=== PATIENT | female | born 1925 | race Two or more races ===

== ENCOUNTER 2016-11-25 08:34 | Day surgery (SDC) | payer MEDICARE, MEDICAID ==
--- NOTE | 2016-11-21 15:30 | Pre-Procedure Note/Attestation ---
Pre-Procedure Note/Attestation Complete Prior to Procedure Planned Procedure: left Procedure Narrative: 1. CATARACT EXTRACTION WITH PHACO AND PC IOL IMPLANTATION, LEFT EYE. 2.LIMBAL RELAXING INCISION, LEFT EYE. Indications for Procedure Pre-Operative Diagnosis: 1. CATARACT , LEFT EYE. 2. ASTIGMATISM, LEFT EYE. Attestation I attest that I discussed the nature of the procedure; its benefits; risks and complications; and alternatives (and the risks and benefits of such alternatives ), prior to the procedure, with the patient (or the patient's legal solar sales representative and assessor). I attest that, if there was a reasonable possibility of needing a blood transfusion, the patient (or the patient's legal solar sales representative and assessor) was given the [place] Department [employer] standardized written summary, pursuant to the Ye Schuyler Blood Safety Act ([place] Health and Safety Code # 1645, as amended). I attest that I re-evaluated the patient just prior to the surgery and that there has been no change in the patient's H&P, except as documented below: NARAYAN ARREGUIN Nov 21, 2016 15:30
[~2016-11-25] VITALS: Ht 162.6 cm; Wt 90.7 kg
[2016-11-25] VITALS (9 sets, daily range): BP systolic 140–160; BP diastolic 61–88
[~2016-11-25 08:34] MED LIST: acetaZOLAMIDE 125mg tab ORAL ONE
[2016-11-25] MEDS ORDERED: Phenylephrine 10% Opth Soln 5ml ONE (08:49)
[2016-11-25] MEDS ORDERED: Akten 3.5% 1ml Btl ONE (08:49)
[2016-11-25] MEDS ORDERED: Vigamox Opth Soln ONE (08:49)
[2016-11-25] MEDS ORDERED: Tropicamide 1% Opth Soln ONE (08:49)
[2016-11-25] MEDS ORDERED: LR 1000ml ONE (09:00)
[2016-11-25] MEDS ORDERED: Midazolam 2mg/2ml Inj ONE (09:00)
[2016-11-25] MEDS ORDERED: Sterile Water Irrig 1000ml IRRIG ONE (09:00)
[2016-11-25] MEDS ORDERED: NS Irrig 1000ml ONE (09:00)
[2016-11-25] MEDS ORDERED: fentaNYL 100 mcg/2 mL IV ONE (09:00)
[2016-11-25] MEDS ORDERED: Diclofenac Sod 0.1% Op Soln ONE (09:06)
[2016-11-25] MEDS: Akten 3.5% 1ml Btl LEFT EYE SCH ×3 (09:07→09:20)
[2016-11-25] MEDS: Tropicamide 1% Opth Soln LEFT EYE SCH ×3 (09:07→09:20)
[2016-11-25] MEDS: Vigamox Opth Soln LEFT EYE SCH ×3 (09:07→09:20)
[2016-11-25] MEDS: Phenylephrine 10% Opth Soln 5ml LEFT EYE SCH ×3 (09:07→09:20)
[2016-11-25] MEDS: Diclofenac Sod 0.1% Op Soln LEFT EYE SCH ×3 (09:08→09:20)
[2016-11-25] MEDS ORDERED: PRAVASTATIN SOD40 M1 ORAL (09:34)
[2016-11-25] MEDS ORDERED: NORVASC5 MG ORAL (09:34)
[2016-11-25] MEDS ORDERED: LR 1000ml 1,000 ML IVLG SCH (09:46)
--- NOTE | 2016-11-25 09:51 | Immediate Post-Op Evaluation ---
Immediate Post-Op Evalulation Immediate Post-Op Evalulation Procedure: Extraction of cataract with IOL left eye Date of Evaluation: Nov 25, 2016 Time of Evaluation: 10:20 IV Fluids: 350 Blood Pressure Systolic: 156 Blood Pressure Diastolic: 71 Pulse Rate: 72 Respiratory Rate: 15 O2 Sat by Pulse Oximetry: 93 Temperature (Fahrenheit): 97.4 Pain Score (1-10): 0 Nausea: No Vomiting: No Complications No complication Patient Status: awake, patent, none Hydration Status: adequate Drug: None TANA PEACOCK M.D. Nov 25, 2016 09:51
--- NOTE | 2016-11-25 09:51 | Anethesia Preoperative Eval ---
Anesthesia Pre-op PMH/ROS General Date of Evaluation: Nov 25, 2016 Time of Evaluation: 09:18 Anesthesiologist: Vipul ASA Score: ASA 3 Mallampati Score Class I : Soft palate, uvula, fauces, pillars visible Class II: Soft palate, uvula, fauces visible Class III: Soft palate, base of uvula visible Class IV: Only hard plate visible Mallampati Classification: Class II Surgeon: Martin Diagnosis: Cataract left eye Surgical Procedure: Extraction of cataract with IOL left eye Anesthesia History: none Family History: no anesthesia problems Allergies: Coded Allergies: No Known Allergies (Unverified , 11/21/16) Medications: see eMAR Past Medical History Cardiovascular: Reports: HTN, other - Hypercholesterolemia, Denies: CAD, ME, valve dz, arrhythmia Pulmonary: Denies: asthma, COPD, JAMIN, other Gastrointestinal/Genitourinary: Denies: GERD, CRI, ESRD, other Neurologic/Psychiatric: Denies: dementia, CVA, depression/anxiety, TIA, other Endocrine: Denies: DM, hypothyroidism, steroids, other HEENT: Denies: cataract (L), cataract (R), glaucoma, ABSENTEE-SHAWNEE (L), ABSENTEE-SHAWNEE (R), other Hematology/Immune: Denies: anemia, DVT, bleeding disorder, other Musculoskeletal/Integumentary: Reports: DJD, Denies: OA, RA, DDD, edema, other Other: obesity PMH Narrative: HTN, obesity, DJD, hypercholesterolemia PSxH Narrative: No prior surgery Anesthesia Pre-op Phys. Exam Physician Exam Last Vital Signs Date Time Temp Pulse Resp B/P (MAP) Pulse Ox O2 Delivery O2 Flow Rate FiO2 11/25/16 09:10 97.0 74 19 152/65 97 Room Air Constitutional: NAD Neurologic: CN 2-12 intact Cardiovascular: RRR, no M/R/G Respiratory: CTA Airway Exam Mallampati Score: Class I MO: full ROM: full Dentures: upper Anesthesia Pre-op A/P Labs WNL Risk Assessment & Plan Assessment: Class 3 obese, hypertensive female for cataract extraction Plan: MAC Status Change Before Surgery: No Pre-Antibiotics Drug: None TANA PEACOCK M.D. Nov 25, 2016 09:51
[2016-11-25] MEDS ORDERED: fentaNYL 100 mcg/2 mL IV PRN (10:00)
[2016-11-25] MEDS ORDERED: LR 1000ml 1,000 ML IV SCH (10:00)
--- NOTE | 2016-11-25 10:15 | Discharge Summary ---
Discharge Summary Discharge Summary Discharge Summary DATE OF ADMISSION: 11/25/2016 DATE OF DISCHARGE: 11/25/2016 REASON FOR HOSPITALIZATION: Cataract left eye SURGERY PERFORMED: Cataract extraction with phaco and PC IOL implantation, left eye CONDITION IN THE HOSPITAL:The patient tolerated the surgery without complications. DISCHARGE CONDITION: The patient was stable at discharge. DISCHARGE MEDICATIONS: 1. Vigamox eye drops one drop q.i.d, left eye 2. Prednisolone one drop q.i.d, left eye 3. Acular one drop q4h, left eye POSTOPERATIVE ORDERS: The patient has to rest at home. No bending, No lifting, No watching Television tonight. POSTOPERATIVE FOLLOW UP: The patient will be followed in my office tomorrow morning at 7 o'clock. NARAYAN ARREGUIN Nov 25, 2016 10:15
--- NOTE | 2016-11-25 10:18 | Brief Operative Note ---
Immediate Post Operative Note Operative Note Chief Complaint: Blurry vision difficulty driving and reading, left eye Pre-op Diagnosis: 1. CATARACT , LEFT EYE. 2. ASTIGMATISM, LEFT EYE. Procedure: Cataract extraction with phaco and PC IOL implantation, left eye Post-op Diagnosis: same as pre-op Surgeon: Narayan Salazar MD Front End Java Developer: None Additional Surgeons: None Anesthesiologist: DR. Garcia Anesthesia: MAC Specimen: none Complications: none Condition: stable Fluids: LR 500 ml Estimated Blood Loss: none Drains: none Packing: none Implant(s) used?: Yes - Monofocal PC IOL implanted in the left eye without complication NARAYAN SALAZAR Nov 25, 2016 10:18
--- NOTE | 2016-11-25 10:18 | 48 Hour Post Anesthesia Eval ---
Post Anesthesia Evaluation Procedure: Extraction of cataract with IOL left eye Date of Evaluation: Nov 25, 2016 Time of Evaluation: 10:45 Blood Pressure Systolic: 158 0: 68 Pulse Rate: 70 Respiratory Rate: 14 O2 Sat by Pulse Oximetry: 95 Airway: patent Nausea: No Vomiting: No Pain Intensity: 0 Hydration Status: adequate Cardiopulmonary Status: Stable Mental Status/LOC: patient returned to baseline Follow-up Care/Observations: As per surgery Post-Anesthesia Complications: No anesthesia complication Follow-up care needed: N/A TANA PEACOCK M.D. Nov 25, 2016 10:18
[2016-11-25] MEDS ORDERED: Lidocaine 1% MPF 10mg/ml 5ml ONE (12:29)
[2016-11-25] MEDS ORDERED: Dexamethasone 4mg/ml vial ONE (12:29)
[2016-11-25] MEDS ORDERED: BSS 500ml btl ONE (12:29)
[2016-11-25] MEDS ORDERED: BSS 15ml BTL ONE (12:30)
[2016-11-25] MEDS ORDERED: Sodium Hyaluronate 10 mg/ml 0.85ml ONE (12:30)
[2016-11-25] MEDS ORDERED: EPINEPHrine 1mg/1ml Amp ONE (12:30)
[2016-11-25] MEDS ORDERED: Povidone-Iodine 5% opth solution ONE (12:30)
--- NOTE | 2016-11-26 06:45 | Operative Note - Dictated ---
DATE OF OPERATION: 11/25/2016 FACILITY: [facility]. SURGEON: Theron Salazar M.D. MANUFACTURING ENGINEER MACHINING: None. ANESTHESIOLOGIST: Ye Matthew M.D. ANESTHESIA: Monitored anesthesia care (MAC). PREOPERATIVE DIAGNOSES: 1. Cataract, left eye. 2. Astigmatism, left eye. POSTOPERATIVE DIAGNOSES: 1. Cataract, left eye. 2. Astigmatism, left eye. SURGERY PERFORMED: 1. Cataract extraction with phacoemulsification and posterior chamber intraocular lens implantation in the left eye. 2. Limbal relaxing incision in the left eye. INDICATION FOR SURGERY: The patient is an 89-year-old lady with history of hypertension, hypercholesterolemia, hyperlipidemia, morbid obesity, arthritis, spondylosis, vitamin D deficiency, low back pain, osteopenia, and vertigo. The patient is taking medications are including pravastatin, dexamethasone, amlodipine, aspirin, and multivitamins. She is not allergic to any medications. She does not smoke. She has had hysterectomy in the past. She has had cataract surgery in the right eye. She is not happy with the results in other place. She is complaining of blurred vision in the left eye. On examination of the left eye, the cornea is clear. Anterior chamber is clean and quiet. Pupillary reflex is normal. There is no RAPD. There is 4+ nuclear sclerosis and 2+ cortical cataract. To improve her vision in the left eye, the cataract has to be removed and anterior chamber intraocular lens has to be implanted. INFORMED CONSENT: The nature of the surgery, risks, benefits, alternatives, and potential complications were all explained in detail to the patient. The potential complications including, but not limited to bleeding, infection, posterior capsular rupture, lens subluxation, flat anterior chamber, iris prolapse, uveitis, corneal edema, macular edema, endophthalmitis, retinal detachment, loss of vision, and even loss of the eye were all explained in detail to the patient. The patient voiced understanding and accepted to all the complications. The alternatives including accommodating lens, multifocal lens, toric lens, and conventional cataract surgery with limbal relaxing incision (LRI) for treatment of astigmatism were all explained in detail to the patient. The patient voiced understanding. The patient elected to have conventional cataract surgery with limbal relaxing for astigmatism. Then, she signed the consent form, which is in the chart. DESCRIPTION OF SURGERY AND FINDINGS: Following that, the patient was taken to the operation room in a stable condition. Lidocaine gel Akten 3.5% were applied to the conjunctiva of the left eye and and IV sedation was given by the anesthesiologist, Dr. Matthew. After adequate anesthesia and sedation had been achieved, the left eye was prepped and draped in a sterile fashion for intraocular surgery. Following that, the speculum was placed in the left eye. Before the patient was taken to the operation room, the cornea was marked at 180 and 90 meridian. In the operation room, using a corneal marker and marking pen, the steep meridian of the cornea was marked. Following that, using a luba knife, two parallel incision was placed on the steep meridian of the cornea to treat the patient's astigmatism. Following that, using a Super Sharp knife, a clear corneal side port was created. Following that, 1% lidocaine without preservative (MPF) was injected into the anterior chamber. Viscoelastic agent, Healon was injected into the anterior chamber. Following that, a clear corneal side temporal keratotomy was performed with a 2.8 mm keratome. Following that, viscoelastic agent was injected into the anterior chamber. Following that, vision blue was injected under the viscoelastic agent into anterior chamber to stain the anterior capsule of the lens. Following that, a clear fresh viscoelastic agent was injected into the anterior chamber again. Under the viscoelastic agent, an anterior capsulotomy was performed in the fashion of capsulorrhexis beautifully. Following that, all viscoelastic agent was removed from the anterior chamber. Following that, using a balanced salt solution, hydrodissection and hydrodelineation was performed and the nucleus was freed. Following that, the viscoelastic was removed from the anterior chamber again. Following that, viscoelastic agent was injected into the anterior chamber again to protect the endothelium of the cornea. Following that, using phacoemulsification machine in the fashion of horizontal chop, the nucleus was removed in toto. Following that, the cortical material was removed from the capsular bag and the capsular bag was polished. Following that, the capsular bag was filled with viscoelastic agent, Healon. Following that, a +20 diopter ZCB00 foldable PCIOL with serial number #[id number] was injected into the capsular bag. Using a Sinskey hook, the lens was manipulated within the proper position. Viscoelastic agent was removed from the anterior posterior part of the lens. Anterior chamber was freed with balanced salt solution. The wound was hydrated with balanced salt solution and the wound was checked for leakage. There was no leakage. Vigamox eye drops were applied to the conjunctiva of the left eye. The patient tolerated the surgery without complications. At the end of the surgery, the eye was patched with a clear sterile fenestrated shield. Following that, the patient was transferred to the recovery room. In the recovery room, 125 mg Diamox was given by mouth stat. Postoperative orders and directions were given to the patient. The patient will be discharged home upon stabilization. The patient will be followed in my office tomorrow morning at 7 o'clock. Theron Salazar M.D. DR: KAREN JOB#: [id number] CC:
== END 2016-11-25 11:45 | disposition home or self-care (01) ==
LOC: SUR 08:34 → EDBD 10:30 → SUR 11:45
DX: H25.12 Age-related nuclear cataract, left eye (principal); H52.202 Unspecified astigmatism, left eye; I10 Essential (primary) hypertension; G89.4 Chronic pain syndrome; M54.5 Low back pain; E78.2 Mixed hyperlipidemia; E66.01 Morbid (severe) obesity due to excess calories; Z68.37 Body mass index [BMI] 37.0-37.9, adult; M17.12 Unilateral primary osteoarthritis, left knee; M17.11 Unilateral primary osteoarthritis, right knee; H81.13 Benign paroxysmal vertigo, bilateral; M19.90 Unspecified osteoarthritis, unspecified site; G60.8 Other hereditary and idiopathic neuropathies; N39.498 Other specified urinary incontinence; K59.01 Slow transit constipation; M47.816 Spondylosis without myelopathy or radiculopathy, lumbar region; E55.9 Vitamin D deficiency, unspecified; Z79.82 Long term (current) use of aspirin; Z90.710 Acquired absence of both cervix and uterus
CPT/HCPCS: 66984; 66999; J0171; J1100; J2250; J3010; J7120; V2632; 94003; 94150